=== PATIENT | male | born 1955 | race Caucasian/White ===

== ENCOUNTER 2022-05-19 08:05 | Emergency (ER) | payer OTHER, SELFPAY ==
[2022-05-19 08:31] VITALS: BP 134/84; PULSE 97; RESP 18; TEMP 37.2; O2SAT 94; BMI 31.6
--- NOTE | 2022-05-19 08:45 | ED.LOWEXIN ---
HPI - Extremity Injury (Lower) General Time Seen by Provider: 08:46 Date Seen: 05/19/22 Chief Complaint: Extremity Pain/Injury, Lower Stated Complaint: Fall/Right foot injury Time Seen by Provider: 05/19/22 08:45 Source: patient and RN notes reviewed Mode of arrival: wheelchair (With difficulty walking on involved foot) Limitations: no limitations History of Present Illness HPI Narrative: Patient is a 67-year-old male coming in with primary complaint of right foot pain. He fell 10 ft out of his deer stand landing on his feet. This happened last evening. He comes in this morning as he is having difficulty bearing any weight on this right foot now. The pain is more along the ball of the foot. No numbness tingling. There is swelling. He landed on his feet, no back pain, no difficulty breathing. He actually walked out of the [place]. He states he did not fall to the ground, did not hit his head, no neck or back pain. His low back felt a little sore this morning when he 1st got out of bed but there is no midline pain, he has no pain shooting down his legs. He did fall attempting try to get up overnight due to pain in the foot. He just went down to the ground, no new injuries. This morning he did note that his left leg hurt on the outside below the knee. He took 6 ibuprofen and now it feels better. Right foot is still painful however. He has no neck or back pain at this time, no difficulty breathing, no chest or chest wall pain. No symptoms in his upper extremities. He presents with his . MD complaint: leg injury (On left) and foot injury (On right) Onset (ago): day(s) (Happened yesterday) Injury: Right: foot Place: street/outdoors Relieving factors: NSAID Exacerbating factors: weight bearing Context: fall Related Data Home Medications Medication Instructions Recorded Confirmed amlodipine 10 mg tablet 10 mg PO DAILY 05/19/22 05/19/22 metoprolol succinate 50 mg 50 mg PO DAILY 05/19/22 05/19/22 tablet,extended release 24 hr quinapril 20 2 tab PO DAILY 05/19/22 05/19/22 mg-hydrochlorothiazide 25 mg tablet Allergies Allergy/AdvReac Type Severity Reaction Status Date / Time No Known Drug Allergies Allergy Verified 05/19/22 08:39 Review of Systems Status of ROS: Reports: 10 or more systems reviewed and unremarkable except as noted in History and below [facility] Medical History (Updated 05/19/22 @ 11:25 by Elaine Hawkins MD) Hypertension Social History Smoking Status: Current every day smoker What tobacco products do you use: cigarettes Smoking packs per day: 1.5 Smoking cigarettes per day: 30.0 Years smoked: 15 Smoking pack-years: 22.50 Do you use any of these nicotine containing products: None How often do you have a drink containing alcohol: 4 or more times a week How many standard drinks containing alcohol do you have on a typical day: 5 or 6 How often do you have six or more drinks on one occasion: Daily or almost daily AUDIT-C Alcohol total score: 10 Non-prescribed substance use: denies use service: Yes Exam Const: Vital Signs, click to edit/add: Vital Signs - 24 hr 05/19/22 08:31 Temperature 99.0 F Pulse Rate [Right Pulse Oximeter] 97 Respiratory Rate 18 Blood Pressure [Ri ght Upper Arm] 134/84 Pulse Oximetry 94 Oxygen Delivery Me thod Room Air Documenting provider has reviewed patient's vital signs: yes Common normals: no apparent distress, oriented x3, no limitations, healthy appearing, alert and well nourished General appearance: cooperative, comfortable and well kempt Nutritional appearance: overweight HENMT: Common normals: normocephalic, head/scalp atraumatic, hearing grossly normal bilaterally, external nose normal and nasal mucous membranes and turbinates normal Head and scalp: normocephalic and atraumatic Nose: external nose normal and nasal mucous membranes and turbinates normal Mouth: oral and palatal mucosa normal, lip normal and tongue normal Eye: Common normals: PERRL, EOMs intact bilaterally, conjunctivae normal and no scleral icterus Conjunctiva: conjunctiva(e) normal Pupil: PERRL Neck & C-Spine: Common normals: full ROM (No midline tenderness, no paraspinous tenderness), no lymphadenopathy, supple, no meningeal signs, no JVD and thyroid normal Thyroid: thyroid normal Resp: Common normals: normal respiratory effort, no retractions, no use of accessory muscles and clear to auscultation bilaterally Auscultation: clear to auscultation bilaterally Cardio: Common normals: no JVD, regular rate, regular rhythm, S1 normal heart sound, S2 normal heart sound, no gallops, no clicks and no murmurs Rate: regular rate Rhythm: regular rhythm Heart sounds: S1 normal and S2 normal GI: Common normals: Normal to inspection, nondistended, normoactive bowel sounds present, soft to palpation, non-tender, no hepatosplenomegaly and no masses Palpation: soft and no hepatosplenomegaly Back & Pelvis: Common normals: no thoracic nor lumbar tenderness and thoraco-lumbar ROM normal Extremity: Other: He has point tenderness over his proximal left fibula, no knee joint line tenderness, no effusion, full range of motion of this left knee. There is no pain distally over the ankle, no pain with compression. His right foot is swollen. I see some ecchymosis developing along the 1st metatarsal head distally. No pain over the malleoli of this ankle, no joint line tenderness or swelling over this ankle. He is tender more over the distal metatarsal on the 1st toe. The whole foot is somewhat swollen, mild tenderness generally in the distribution of the midfoot. It is difficult to pinpoint an exact area of tenderness. Does not seem to be tender when I palpate his calcaneus on the heel of the foot. Neurovascular is intact on both lower extremities. Upper extremities are mobile, no complaints of pain. Neuro: Marie Coma Scale: document GCS findings [place] coma scale eye opening: Spontaneous (4) Marie coma scale verbal response: Orientated (5) Marie coma scale motor response: Obey commands (6) [place] coma scale total score: 15 Common normals: oriented x3 Sensorium/orientation: alert Meningeal signs: no meningeal signs Psych: Appearance: well kempt Course Course Hospital Course: With a direct impact fall as he is describing, do think we should x-ray his tibia and fibula on the left leg as well as his foot on the right. Reevaluation(s) Reevaluation #1: Patient and I reviewed that there likely is a midfoot fracture. He may ultimately get more advanced imaging with Orthopedics but at this time he is stable and does want to leave. We have put on a cam walker, he has crutches at home and does have availability for a walker if need be. Time: 11:29 Consultations Consultation #1: Price back from Orthopedics, they were delayed in the OR before I could speak with them. Dr. Newell feels like this could be Lalo's fracture per verbal report given to me from the nurse that is in the OR with him. He did recommend immobilization. I subsequently spoke with Jere as well. We will do cam walker, crutches, ice elevate and follow up outpatient with Orthopedics. Time: 11:24 Vital Signs Vital signs: Initial Vital Signs Temperature 99.0 F 05/19/22 08:31 Temperature Source Temporal Artery Scan 05/19/22 08:31 Pulse Rate 97 05/19/22 08:31 Respiratory Rate 18 05/19/22 08:31 Blood Pressure 134/84 05/19/22 08:31 Blood Pressure Mean 100 05/19/22 08:31 Blood Pressure Position Sitting 05/19/22 08:31 Pulse Oximetry 94 05/19/22 08:31 Oxygen Delivery Method 05/19/22 08:31 Vital Signs Temperature 99.0 F 05/19/22 08:31 Pulse Rate 97 05/19/22 08:31 Respiratory Rate 18 05/19/22 08:31 Blood Pressure 134/84 05/19/22 08:31 Pulse Oximetry 94 05/19/22 08:31 Oxygen Delivery Method 05/19/22 08:31 Temperature 99.0 F 05/19/22 08:31 Pulse Rate 97 05/19/22 08:31 Respiratory Rate 18 05/19/22 08:31 Blood Pressure 134/84 05/19/22 08:31 Pulse Oximetry 94 05/19/22 08:31 Oxygen Delivery Method 05/19/22 08:31 MDM - Extremity Injury (Lower) Imaging Data X-ray left tib-fib: Attestation: I have reviewed the pertinent imaging results. My impression: I do not see any acute fracture on my preliminary read. Do see a bone island type looking thing and proximal tibia, await Radiology over-read. Radiologist's impression: Patient: OLESYA GOMEZ Facility:?[facility] Patient ID:?[id number] Site Patient ID:?[id number]. Site :?[id number] Study:?XRay Extremity Left TIB/FIB-05/19/2022 9:24:12 AM Ordering Physician:?Suchomel-Chávez Elaine Final Report: Indication: Pain over the proximal tibia Technique: Two views of the left tibia and fibula were acquired Comparison: A knee radiograph from March 17, 2010 Findings: No fracture, dislocation or destructive process. Mild degenerative changes about the knee joint. Old incidental bone infarct in the proximal tibia. This is also called AVN or medullary osteonecrosis. This was not present in 2010 but is not acute on the current study. Impression: No acute appearing finding. Osteoarthritis about the left knee joint. 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 Radiologist initial reading was that there is no fracture, have called Radiology to have them relook at this film. Orthopedist agrees that there is a fracture. Critical Care Time Critical Care Time Critical Care Time: No Discharge Plan Discharge Clinical Impression: Fracture of right foot Patient Disposition: Home, Self-Care Condition: Stable Instructions: Foot Fracture in Adults (ED) Additional Instructions: Follow-up with orthopedics, appointment has reportedly been made. Need to immobilize with a cam walker. Ice, elevate. Tylenol ibuprofen as needed for pain management. If pain with weight-bearing, need to use crutches. Follow up appointment scheduled at the [facility] on 05/27 with a 2:40pm arrival time. [facility] [address] [place] [id number] Prescriptions: No Action amlodipine 10 mg tablet 10 mg PO DAILY metoprolol succinate 50 mg tablet extended release 24 hr 50 mg PO DAILY quinapril-hydrochlorothiazide 20-25 mg tablet 2 tab PO DAILY Label Comments: TAKE 2 TABLETS BY MOUTH EVERY DAY Stand Alone Forms: [employer] Info Instructions
--- NOTE | 2022-05-19 08:52 | CRLHL7_ITS ---
For Patients: As a result of the Century Cures Act, medical imaging exams and procedure reports are released immediately into your electronic medical record. You may view this report before your referring provider. If you have questions, please contact your health care provider. Indication: Pain related to trauma Technique: A total of three views of the right foot were acquired. Comparison: None Findings: Bones: Alignment is normal. No fractures or bone lesions. Joint spaces: Mild degenerative changes Soft tissues: Unremarkable. Impression: No acute fracture, dislocation or destructive process. Mild degenerative changes. Dictated by Evangelista Santiago MD @ 05/19/2022 9:44:27 AM (Electronically Signed)
--- NOTE | 2022-05-19 08:52 | CRLHL7_ITS ---
For Patients: As a result of the Cures Act, medical imaging exams and procedure reports are released immediately into your electronic medical record. You may view this report before your referring provider. If you have questions, please contact your health care provider. Indication: Pain over the proximal tibia Technique: Two views of the left tibia and fibula were acquired Comparison: A knee radiograph from March 17, 2010 Findings: No fracture, dislocation or destructive process. Mild degenerative changes about the knee joint. Old incidental bone infarct in the proximal tibia. This is also called AVN or medullary osteonecrosis. This was not present in 2010 but is not acute on the current study. Impression: No acute appearing finding. Osteoarthritis about the left knee joint. 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
== END 2022-05-19 11:39 | disposition home or self-care (01) ==
PROVIDERS: Emergency Provider Family Medicine; PCP Family Medicine
DX: S92.901A Unspecified fracture of right foot, initial encounter for closed fracture (principal); W17.89XA Other fall from one level to another, initial encounter; Y93.89 Activity, other specified; Y92.89 Other specified places as the place of occurrence of the external cause; Y99.8 Other external cause status
CPT/HCPCS: 73590; 73630; 99283

== ENCOUNTER 2023-03-03 07:54 | Outpatient (CLI) | payer MEDICARE, OTHER, SELFPAY ==
--- NOTE | 2023-03-03 09:17 | W.ANESCHARGE ---
Anesthesia Charges Start Date/Time Anesthesia Start Date: 03/03/23 Anesthesia Start Time: 08:30 Stop Date/Time Anesthesia Stop Date: 03/03/23 Anesthesia Stop Time: 09:15
== END 2023-03-03 07:55 | disposition home or self-care (01) ==
LOC: OP CLINIC 07:55
PROVIDERS: PCP Internal Medicine; Visit Provider Internal Medicine
DX: Z12.11 Encounter for screening for malignant neoplasm of colon (principal); K57.30 Diverticulosis of large intestine without perforation or abscess without bleeding; K52.9 Noninfective gastroenteritis and colitis, unspecified; K63.5 Polyp of colon; K92.2 Gastrointestinal hemorrhage, unspecified; K63.89 Other specified diseases of intestine; R19.8 Other specified symptoms and signs involving the digestive system and abdomen
CPT/HCPCS: 00813; 43239; 45380; 45385; 88305; J2704

== ENCOUNTER 2025-04-27 13:19 | Outpatient (CLI) | payer OTHER, SELFPAY | END 2025-04-27 13:20 | disposition home or self-care (01) | PROVIDERS: PCP Internal Medicine; Visit Provider Internal Medicine | DX: I10 Essential (primary) hypertension (principal) | CPT/HCPCS: 80053; 80061; G0103 ==